=== PATIENT | female | born 1970 | race Caucasian/White ===

== ENCOUNTER → 2017-05-22 | Day surgery (SDC) | payer OTHER ==
--- NOTE | 2017-05-21 11:39 | MH ---
cc: Shaan GIL M.D. DATE OF ADMISSION: 05/22/2017 ADMITTING DIAGNOSIS 1. Torn lateral meniscus and internal derangement, left knee. 2. Left ring trigger finger. HISTORY OF PRESENT ILLNESS The patient is a 46-year-old female now being admitted for arthroscopy left knee and injection of her left ring trigger finger. PAST MEDICAL HISTORY 1. Fibromyalgia. 2. Anxiety. 3. Hepatitis C. 4. Back pain. MEDICATIONS Current medications include amitriptyline. SOCIAL HISTORY She does smoke cigarettes, does not drink alcohol. REVIEW OF SYSTEMS Noncontributory. FAMILY HISTORY Noncontributory. ALLERGIES 1. PENICILLIN. 2. CODEINE. 3. WELLBUTRIN. 4. LIPITOR. PAST SURGICAL HISTORY 1. Hysterectomy. 2. Carpal tunnel surgery. 3. . 4. Breast lipoma removal. 5. Cholecystectomy. PHYSICAL EXAMINATION GENERAL: We find a 46-year-old female well-developed, well-nourished oriented x3 complaining of pain in her left knee and left ring finger. VITAL SIGNS: Blood pressure 112/72, pulse 87 and regular, respirations 16, temperature 98.0. Pulse oximetry 98% on room air. HEENT: Eyes PERRLA, EOMI. Ears, nose, and mouth clear. NECK: Supple. LUNGS: Clear. HEART: Regular rate. ABDOMEN: Soft. Positive bowel sounds. Nontender. EXTREMITIES: The left ring finger is triggering. The left knee is tender over the medial and lateral joint margins. She is neurovascularly intact in the upper and lower extremities: IMPRESSION The impression at this time is: 1. Internal derangement left knee including torn lateral meniscus and chondromalacia. 2. Trigger finger, left ring finger. PLAN Admission for arthroscopy left knee and injection of left ring finger with cortisone. The patient is given a prescription for postoperative pain control in the office. MD MALAIKA Lara/JIN /11:13 AM /11:23 AM
[~2017-05-22] VITALS: Ht 157.5 cm; Wt 72.8 kg
[~2017-05-22] MED LIST: *ONDANSETRON 4 MG VIAL PERIprocedural Use ONLY ONE; *morphine SULFATE 8 MG/ML PERIprocedure ONLY ONE; ACETAMINOPHEN 1000 MG/100 ML VIAL IV ONE; AMIT100T2 PO; BUPIVACAINE HCL PF 0.25% 30 ML VIAL ONE; CHLORHEXIDINE GLUCONATE 2 % 1 PACK (2 CLOTHS) TOPICAL PRN; CHLORHEXIDINE GLUCONATE 4% SOLN 120 ML BTL TOPICAL SCH; CLINDAMYCIN 900 MG/NS 100 ML IV SCH; DEXAMETHASONE SOD PHOS 20 MG/5 ML VIAL ONE; DEXAMETHASONE SOD PHOS 4 MG/ML VIAL ONE; DO NOT ADM ANY ANTICOAGULANT DRUGS PRN; FAMOTIDINE 20 MG/2 ML VIAL ONE; FISH100020 PO; INSULIN HUMAN REGULAR 1,000 UNITS/10 ML VIAL SQ PRN; KETOROLAC TROMETHAMINE 60 MG/2 ML (IM) VIAL IM ONE; LACTATED RINGER'S 1000 ML IV PRN; MEPERIDINE HCL 50 MG/ML VIAL IM PRN; METOPROLOL TARTRATE 25 MG TAB PO PRN; MIDAZOLAM HCL 2 MG/2 ML VIAL ONE; MULT-65 PO; ONDANSETRON HCL 4 MG/2 ML VIAL IV PUSH ONE; ONDANSETRON ODT 4 MG TAB PO PRN; POVIDONE IODINE 5% (ANTISEPSIS KIT) 4 APPLICATIONS EACH NARE PRN; PROPOFOL 200 MG/20 ML AMP IV ONE; SODIUM CHLORID 0.9% 500 ML IV PRN; TH F1000 PO; fentaNYL CITRATE 250 MCG/5 ML AMP ONE; traMADol HCL 50 MG TAB PO PRN
[2017-05-22 06:19] LABS: BLOOD, URINE NEG (NEG); GLUCOSE,URINE NEG (NEG); KETONE, URINE NEG (NEG); NITRITE,URINE NEG (NEG); PH, URINE 6.5 (5.0-8.5); SQUAMOUS EPITHELIAL CELL URINE 1 /hpf (0-5); TRANSITIONAL EPI CELLS, URINE <1 /hpf; URINE COLOR LIGHT-YELLOW (YELLW/STRAW)
[2017-05-22 06:26] LABS: COMMENT (UR) CULT NOT INDICATED; CULTURE IF INDICATED CULT NOT INDICATED
[2017-05-22 06:48] VITALS: BP 114/75; PULSE 80; RESP 20; TEMP 98.7; O2SAT 97
[2017-05-22 07:15] LABS: AUTOMATED NEUTROPHIL # 10.8 TH/MM3 (1.8-7.7); BASOPHIL # 0.1 TH/MM3 (0-0.2); BASOPHIL % 0.5 % (0.0-2.0); EOSINOPHIL # 0.2 TH/MM3 (0-0.4); EOSINOPHIL % 1.6 % (0.0-4.0); HEMATOCRIT 42.7 % (35.0-46.0); HEMO FLAGS DIFF FINAL; LYMPH % 17.4 % (9.0-44.0); LYMPHOCYTE # 2.6 TH/MM3 (1.0-4.8); MEAN CELL VOLUME 89.1 FL (80.0-100.0); MEAN CORPUSCULAR HEMOGLOBIN 29.5 PG (27.0-34.0); MEAN CORPUSCULAR HGB CONC 33.2 % (32.0-36.0); NEUT % 72.5 % (16.0-70.0); PLATELET COUNT 247 TH/MM3 (150-450); RED BLOOD COUNT 4.79 MIL/MM3 (4.00-5.30); RED CELL DISTRIBUTION WIDTH 13.5 % (11.6-17.2); WHITE BLOOD COUNT 14.9 TH/MM3 (4.0-11.0)
[2017-05-22 07:22] LABS: APTT (PATIENT) 29.2 SEC (24.3-30.1); INTERNATIONAL NORMALIZED RATIO 0.9 RATIO; PROTHROMBIN TIME - PATIENT 9.7 SEC (9.8-11.6)
[2017-05-22 07:26] LABS: ALT (GPT) 25 U/L (10-53); ANION GAP 7 MEQ/L (5-15); AST (GOT) 24 U/L (15-37); BICARBONATE 27.1 MEQ/L (21.0-32.0); BLOOD UREA NITROGEN 9 MG/DL (7-18); CHLORIDE 107 MEQ/L (98-107); SODIUM (NA) 141 MEQ/L (136-145)
[2017-05-22 07:28] LABS: ALKALINE PHOSPHATASE 104 U/L (45-117); GLOMERULAR FILTRATION RATE 95 ML/MIN (>89); TOTAL BILIRUBIN ADULT 0.3 MG/DL (0.2-1.0)
--- NOTE | 2017-05-22 09:36 | HHI.PR ---
Immediate Post Op Note Procedure Date: May 22, 2017 Pre Op Diagnosis: Left knee torn lateral meniscus Trigger finger, left ring finger. Post Op Diagnosis: Left knee torn lateral meniscus and chondromalacia. Trigger finger, left ring finger. Surgeon: Shaan Dacosta MD Wildlife Technician(s): Shannan PERRIN Procedure: Left knee Arthroscopy with internal debridement Left ring finger injection Complications: none Specimen(s) removed: none Estimated blood loss: <10cc Anesthesia: General Drains: None IVF Tourniquet time (min at mmHg) none Patient to: PACU Patient Condition: Good Date/Time of Procedure: SEE SURGICAL CARE RECORD Shannan Herrera May 22, 2017 09:36
[2017-05-22 11:00] VITALS: BP 108/72; PULSE 79; RESP 18; TEMP 97.1; O2SAT 97
--- NOTE | 2017-05-22 12:42 | EKG ---
Date Performed: 05/22/2017 Time Performed: 06:45:33 PTAGE: 47 years EKG: Sinus rhythm NORMAL ECG NO PREVIOUS TRACING DOCTOR: Rambo Islas Interpretating Date/Time 05/22/2017 12:39:32
--- NOTE | 2017-05-23 15:43 | MP ---
cc: Shaan GIL M.D. DATE OF SURGERY: 05/22/2017. PREOPERATIVE DIAGNOSIS: 1. Torn meniscus and internal derangement left knee. 2. Left ring trigger finger. OPERATIVE PROCEDURE PERFORMED: 1. Arthroscopy, excision torn lateral meniscus and chondroplasty patellofemoral joint for chondromalacia and lateral compartment. 2. Injection of 1 cc of Depo-Medrol into the A1 salomon of her left ring finger. SURGEON: Shaan Gil MD. ORTHOPEDIC ASSISTANT: MARYCHUY Marie. ANESTHESIA: LMA. DESCRIPTION OF THE PROCEDURE IN DETAIL: The patient was brought to the operating room and placed on the operating room table in the supine position. After successful induction of general anesthesia, the patient's ?? leg was prepped and draped in the usual manner. The knee was then placed in a knee barnett and tightened. Arthroscopic examination was then performed by making a stab wound over the proximal superior and medial aspect of the patellofemoral joint for insertion of the inflow cannula and fluid, followed by stab wounds over the medial and lateral joint margins respectively for insertion of the arthroscope, shaver and probe. Arthroscopic examination was then performed which revealed intact medial compartment, intact anterior cruciate ligament, grade 3 chondromalacic changes noted in the patellofemoral joint shaved smooth using the ArthroCare System. The lateral compartment was found to have a fairly large tear of the lateral meniscus, complex, which was shaved smooth using the ArthroCare Shaving Probe to afford a smooth surface. The rest of the lateral compartment was found to be grossly intact. The wound was irrigated copiously with lactated Ringer's solution. Excess fluid was removed. 10 cc of 0.25% Marcaine plain was instilled to the knee joint. The skin was approximated with interrupted 2-0 nylon suture. Wet and then dry dressing was applied to the wound followed by Xeroform gauze, sterile dressing and thigh-high [place] wrap. No tourniquet was utilized. The estimated blood loss was 10 cc. Sponge and suture counts were correct. The second part was the left ring finger which was prepped with alcohol and using a 22-gauge needle, 1 cc of Depo-Medrol was injected directly under the A1 salomon. A Band-Aid was applied. The patient tolerated the procedure well and left the operating room in satisfactory condition. MARYCHUY Marie, was present during the entire procedure to include patient positioning and the procedure. The medical necessity of a nurse practitioner / home based assistant was indicated in this case due to the surgical complexity of the case itself. During the surgical case, the surgical attendant was working at the back table while my surgical asst / GEAR KEEPER were directly assisting me. J. MD MALAIKA Fleming/DINESH /9:29 AM /3:38 PM
== END | disposition home or self-care (01) ==
LOC: HSDC 05:29
PROVIDERS: ATTEND Surgery
DX: S83.282A Other tear of lateral meniscus, current injury, left knee, initial encounter (principal); M23.92 Unspecified internal derangement of left knee; M65.342 Trigger finger, left ring finger; M94.262 Chondromalacia, left knee; B19.20 Unspecified viral hepatitis C without hepatic coma; M79.7 Fibromyalgia; F41.9 Anxiety disorder, unspecified; F17.210 Nicotine dependence, cigarettes, uncomplicated; Z01.810 Encounter for preprocedural cardiovascular examination; X58.XXXA Exposure to other specified factors, initial encounter
CPT/HCPCS: 01400; 01991; 20551; 29881; 80053; 81001; 85025; 85610; 85730; 93005; J0131; J1100; J1885; J2250; J2270; J2405; J3010; J7120